=== PATIENT | male | born 1960 | race Caucasian/White ===

== ENCOUNTER 2016-07-16 11:23 | Emergency (ER) | payer MEDICAID, OTHER ==
[2016-07-16 11:23] VITALS: BMI 20.5
[2016-07-16 11:39] VITALS: RESP 18; TEMP 98.5
[2016-07-16] MEDS ORDERED: Iohexol 240 (50 ml) ONE (12:18)
--- NOTE | 2016-07-16 12:25 | ED PDOC ---
Arrival/HPI - General Historian: Patient - History of Present Illness Time/Duration: > month (3 months ) Symptom Onset: Gradual Symptom Course: Unchanged Quality: Throbbing Severity Level: 4 Activities at Onset: Rest Context: Home - General Chief Complaint: Abdominal Pain Time Seen by Provider: 07/16/16 11:48 - History of Present Illness Narrative History of Present Illness (Text): 07/16/16 12:25 This is a 56Y M with PMH of vertigo who came to ED for LUQ abdominal pain x 3 months. He reports it is worse today. It is described as an intermittent pain and he has had a 20lb weight loss over the past 3 months. He denies decreased appetite, n/v/d, numbness/tingling, fever or chills. He did go to [facility] last week for this pain. He had an EGD done and is scheduled for a colonoscopy with Dr. Aquino. He was d/c with sara. The patient does not have any more information about his diagnosis during that stay. He was recently in [place] 3 weeks ago. (Julianna Sow) Past Medical History - Provider Review Nursing Documentation Reviewed: Yes - Travel History Have you recently traveled outside [place] w/in the past 3 mons?: Yes If Yes, travel location?: [place] - Cardiac Hx Cardiac Disorders: No - Pulmonary Hx Respiratory Disorders: No - Neurological Hx Neurological Disorder: No - HEENT Hx HEENT Disorder: No - Renal Hx Renal Disorder: No - Endocrine/Metabolic Hx Endocrine Disorders: No - Hematological/Oncological Hx Blood Disorders: No - Integumentary Hx Dermatological Disorder: No - Musculoskeletal/Rheumatological Hx Musculoskeletal Disorders: No - Gastrointestinal Hx Gastrointestinal Disorders: Yes Hx Gastritis: Yes - Genitourinary/Gynecological Hx Genitourinary Disorders: No - Psychiatric Hx Psychophysiologic Disorder: No Hx Substance Use: No - Anesthesia Hx Anesthesia: No Hx Anesthesia Reactions: No Hx Malignant Hyperthermia: No Family/Social History - Physician Review Nursing Documentation Reviewed: Yes Family/Social History: No Known Family HX Smoking Status: Never Smoked Hx Alcohol Use: No Hx Substance Use: No Allergies/Home Meds Allergies/Adverse Reactions: Allergies No Known Allergies Allergy (Verified 02/05/15 09:24) Home Medications: Home Meds Medication Instructions Recorded Confirmed Ibuprofen [Motrin] 400 mg PO PRN PRN 02/05/15 02/05/15 Omeprazole 20 mg PO BID 02/05/15 02/05/15 Review of Systems - Review of Systems Constitutional: Weight Change. absent: Fevers Eyes: Normal. absent: Vision Changes ENT: Normal Respiratory: Normal. absent: SOB, Cough Cardiovascular: Normal. absent: Chest Pain, Palpitations Gastrointestinal: Abdominal Pain. absent: Constipation, Diarrhea, Nausea, Vomiting Genitourinary Male: Normal. absent: Dysuria, Frequency, Hematuria Musculoskeletal: Normal Skin: Normal. absent: Rash, Pruritis Neurological: Normal. absent: Headache, Dizziness Endocrine: Normal. absent: Diaphoresis Hemo/Lymphatic: Normal Psychiatric: Normal. absent: Anxiety, Depression Physical Exam Vital Signs Reviewed: Yes Temperature: Afebrile Blood Pressure: Normal Respiratory Rate: Normal Appearance: Positive for: Well-Appearing, Non-Toxic, Comfortable Pain Distress: None Mental Status: Positive for: Alert and Oriented X 3 - Systems Exam Head: Present: Atraumatic, Normocephalic Pupils: Present: PERRL Extroacular Muscles: Present: EOMI Conjunctiva: Present: Normal Mouth: Present: Moist Mucous Membranes Neck: Present: Normal Range of Motion Respiratory/Chest: Present: Clear to Auscultation, Good Air Exchange. No: Respiratory Distress, Accessory Muscle Use Cardiovascular: Present: Regular Rate and Rhythm, Normal S1, S2. No: Murmurs Abdomen: Present: Tenderness (mild LUQ tenderness. ), Normal Bowel Sounds, Other (L lateral pulsation felt). No: Distention, Peritoneal Signs Back: Present: Normal Inspection Upper Extremity: Present: Normal Inspection. No: Cyanosis, Edema Lower Extremity: Present: Normal Inspection. No: Edema Neurological: Present: GCS=15, CN II-XII Intact, Speech Normal Skin: Present: Warm, Dry, Normal Color. No: Rashes Psychiatric: Present: Alert, Oriented x 3, Normal Insight, Normal Concentration Vital Signs Temp Pulse Resp BP Pulse Ox 07/16/16 14:52 74 18 124/68 98 07/16/16 13:51 79 18 126/72 97 07/16/16 12:35 89 18 138/68 97 07/16/16 11:23 98.5 F 91 H 18 140/63 97 Medical Decision Making Re-evaluation Time: 13:00 Reassessment Condition: Unchanged - Lab Interpretations I have reviewed the lab results: Yes Interpretation: All labs normal - RAD Interpretation Ux Specialist: Radiologist - EKG Interpretation Interpreted by ED Physician: Yes Type: 12 lead EKG Comparison: No previous EKG avail. ED Course and Treatment: Patient Seen With Resident: In agreement with resident note. Patient was seen and evaluated with resident, came up with plan and treatment together. adalgisa (Heath Laboy DO) Impression: This is a 56Y M with PMH vertigo here for LUQ abdominal pain x 3 months with weight loss. Patient already had work up at [facility]. Only records seen is patient had EGD and scheduled for colonoscopy. DDX: Pancreatitis, Mesenteric ischemia Plan: -- CBC, CMP, U/A -- CT abd/pelvis --Reassess Prior Visits: Notes and results from previous visits were reviewed. 07/16/16 15:04 Progress note: All labs within normal limits. CT abd/pelvis showed no acute findings. Discharge Instructions: Re-evaluation. Patient feels better. Discussed results and plan with patient who expresses understanding. All questions answered and there is agreement with the plan to discharge home with instructions. Patient stable for discharge. Return if symptoms persist or worsen. ( Julianna Sow) - Lab Interpretations Lab Results: 07/16/16 12:38 07/16/16 12:38 Lab Results 07/16/16 12:38: Sodium 138, Potassium 4.2, Chloride 102, Carbon Dioxide 31, Anion Gap 9 L, BUN 13, Creatinine 1.0, Est GFR ( Amer) > 60, Est GFR (Non -Af Amer) > 60, Random Glucose 103, Calcium 9.7, Total Bilirubin 0.8, AST 24, ALT 32, Alkaline Phosphatase 68, Total Protein 7.2, Albumin 4.3, Globulin 2.9, Albumin/Globulin Ratio 1.5 07/16/16 12:38: WBC 4.4 L, RBC 4.96, Hgb 14.7, Hct 43.4, MCV 87.5, MCH 29.6, MCHC 33.9, RDW 12.4, Plt Count 195, MPV 9.8 07/16/16 12:32: Urine Color Yellow, Urine Appearance Clear, Urine pH 7.0, Ur Specific [place] <= 1.005, Urine Protein Negative, Urine Glucose (UA) Negative, Urine Ketones Negative, Urine Blood Negative, Urine Nitrate Negative, Urine Bilirubin Negative, Urine Urobilinogen 0.2, Ur Leukocyte Esterase Negative - RAD Interpretation Narrative RAD Interpretations (Text): 07/16/16 14:59 CT abd/pelvis showed no acute findings. No aortic aneurysm seen. Some fullness was seen in the kidneys bilaterally, but no stones. Please see full report for more details. (Julianna Sow) Radiology Orders: 07/16/16 12:13 ABD PELVIS PO & IV CONTRAST [CT] Stat - EKG Interpretation EKG Interpretation (Text): 07/16/16 15:05 HR 92. Intervals within normal limits. NSR. (Julianna Sow) - Medication Orders Current Medication Orders: Discontinued Medications Iohexol (Omnipaque 240 (50 Ml)) Confirm Administered Dose 50 ml .ROUTE .STK-MED ONE Stop: 07/16/16 12:19 Iohexol (Omnipaque 350 100 Ml) Confirm Administered Dose 350 mg .ROUTE .STK-MED ONE Stop: 07/16/16 13:50 Disposition/Present on Arrival - Present on Arrival Any Indicators Present on Arrival: No History of DVT/PE: No History of Uncontrolled Diabetes: No Urinary Catheter: No History of Decub. Ulcer: No History Surgical Site Infection Following: None - Disposition Have Diagnosis and Disposition been Completed?: Yes Disposition Time: 14:30 Patient Plan: Discharge - Disposition Diagnosis: Abdominal pain Disposition: HOME/ ROUTINE Patient Problems: Current Active Problems Problem Status Onset Abdominal pain Acute Condition: GOOD Discharge Instructions (ExitCare): Abdominal Pain (ED) Print Language: HEBREW Additional Instructions: Conradkadinirali, thank you for letting us take care of you today. Your provider was Dr. Sow. You were treated for abdominal pain. The emergency medical care you received today was directed at your acute symptoms. If you were prescribed any medication, please fill it and take as directed. It may take several days for your symptoms to resolve. Return to the Emergency Department if your symptoms worsen, do not improve, or if you have any other problems. Please contact your doctor or call one of the physicians/clinics you have been referred to that are listed on the Patient Visit Information form that is included in your discharge packet. Bring any paperwork you were given at discharge with you along with any medications you are taking to your follow up visit. Our treatment cannot replace ongoing medical care by a primary care provider (PCP) outside of the emergency department. Thank you for allowing the [facility] team to be part of your care today. If you had an X-Ray or CT scan: A Radiologist will review the ED reading if any change in treatment is needed we will contact you. Please follow up with PMD in 1 week. Please follow up with scheduled outpatient colonoscopy with Dr. Aquino. Please take Tramadol prescribed from [facility] as needed for pain. Prescriptions: Dicyclomine [Dicyclomine HCl] 10 mg PO TID #15 cap Referrals: Rosario Spain MD [Primary Care Provider] - Follow up with primary
[2016-07-16 12:44] LABS: HEMATOCRIT 43.4 % (42.0-52.0); MEAN CELL VOLUME 87.5 fL (80.0-105.0); MEAN CORPUSCULAR HEMOGLOBIN 29.6 pg (25.0-35.0); MEAN CORPUSCULAR HGB CONC 33.9 g/dl (31.0-37.0); MEAN PLATELET VOLUME 9.8 fl (7.0-11.0); RED CELL DISTRIBUTION WIDTH 12.4 % (11.5-14.5); WHITE BLOOD COUNT 4.4 10^3/ul (4.5-11.0)
[2016-07-16 12:51] LABS: ALB/GLOB RATIO 1.5 (1.1-1.8); ALKALINE PHOSPHATASE 68 U/L (38-133); ALT/SGPT 32 U/L (7-56); AST/SGOT 24 U/L (15-59); BILIRUBIN,TOTAL 0.8 mg/dL (0.2-1.3); BLOOD UREA NITROGEN 13 mg/dL (7-21); CALCIUM 9.7 mg/dL (8.4-10.5); CARBON DIOXIDE 31 mmol/L (21-33); CHLORIDE 102 mmol/L (95-110); GFR AFRICAN-AMERICAN > 60; GLUCOSE,RANDOM 103 mg/dL (70-110); POTASSIUM 4.2 mmol/L (3.6-5.0); SODIUM 138 mmol/L (132-148); TOTAL PROTEIN 7.2 g/dL (5.8-8.3)
[2016-07-16 13:19] LABS: URINE BILIRUBIN NEGATIVE (NEGATIVE); URINE BLOOD NEGATIVE (NEGATIVE); URINE GLUCOSE (UA) NEGATIVE (NEGATIVE); URINE KETONE NEGATIVE (NEGATIVE); URINE LEUKOCYTE ESTERASE NEGATIVE Leu/uL (NEGATIVE); URINE PROTEIN NEGATIVE mg/dL (<30 mg/dL); URINE UROBILINOGEN 0.2 E.U./dL (<1 E.U./dL)
[2016-07-16 13:20] LABS: URINE APPEARANCE CLEAR (CLEAR); URINE COLOR YELLOW (YELLOW)
[2016-07-16] MEDS ORDERED: Iohexol 350 MG/100 ML VIAL ONE (13:49)
--- NOTE | 2016-07-16 14:40 | CT ---
PROCEDURE: CT Abdomen and Pelvis with oral and IV contrast. HISTORY: ABDOMINAL PAIN COMPARISON: None available. TECHNIQUE: Contiguous axial images of the abdomen and pelvis. Oral and IV contrast was administered. Coronal and Sagittal reformats generated. Contrast dose: 100 mL Omnipaque 350 Radiation dose: Total exam DLP = 200.76 mGy-cm. This CT exam was performed using one or more of the following dose reduction techniques: Automated exposure control, adjustment of the mA and/or kV according to patient size, and/or use of iterative reconstruction technique. FINDINGS: LOWER THORAX: No visible consolidation, pleural effusion, or pneumothorax. LIVER: Unremarkable. GALLBLADDER AND BILE DUCTS: Unremarkable. PANCREAS: Unremarkable. SPLEEN: 16 mm probable splenule. Otherwise unremarkable. ADRENALS: Unremarkable. KIDNEYS AND URETERS: The kidneys enhance symmetrically. Mild fullness of bilateral renal collecting systems. No obstructing calculus identified. BLADDER: Distended urinary bladder. REPRODUCTIVE: The prostate gland measures approximately 3.5 x 5.6 cm. APPENDIX: The appendix appears within normal limits of caliber. No secondary signs of acute appendicitis. BOWEL: The stomach is nondistended. The bowel loops appear within normal limits of caliber without evidence of intestinal obstruction. PERITONEUM: No significant free fluid. No definite free air. LYMPH NODES: No bulky lymphadenopathy identified. VASCULATURE: No aortic aneurysm. BONES: No acute osseous abnormality is detected. OTHER FINDINGS: None. IMPRESSION: Fullness of bilateral renal collecting systems. No obstructing calculus identified. Distended urinary bladder.
[2016-07-16 14:53] VITALS: BP 124/68; PULSE 74; O2SAT 98
--- NOTE | 2016-07-16 18:35 | CARD ---
APPROVED REPORT EKG Measurement Heart [id number] <Conclusion> Normal sinus rhythm Rightward axis Left ventricular hypertrophy with repolarization abnormality Abnormal ECG
== END 2016-07-16 15:45 | disposition home or self-care (01) ==
LOC: ED 11:23
DX: R10.9 Unspecified abdominal pain (principal)
CPT/HCPCS: 74177; 80053; 81003; 85027; 87086; 93005; 99284; Q9966; Q9967